=== PATIENT | female | born 1995 | race Caucasian/White ===

== ENCOUNTER 2016-11-27 18:54 | Emergency (ER) | payer OTHER ==
[2016-11-27 18:54] VITALS: BMI 24.7
[2016-11-27 20:25] LABS: RBC URINE 4 /hpf (0-3); URINE BACTERIA OCC (<OCC); URINE BILIRUBIN NEGATIVE (NEGATIVE); URINE BLOOD NEGATIVE (NEGATIVE); URINE COLOR Yellow (YELLOW); URINE GLUCOSE (UA) NORMAL (Normal); URINE KETONE TRACE mg/dL (NEGATIVE); URINE LEUKOCYTE ESTERASE TRACE Leu/uL (Negative); URINE PROTEIN NEGATIVE (NEGATIVE); URINE UROBILINOGEN NORMAL mg/dL (0.2-1.0); WBC URINE 6 /hpf (0-5)
[2016-11-27] MEDS ORDERED: Sodium Chloride 0.9% 1,000 ML IV ONE (21:12)
[2016-11-27] MEDS ORDERED: Sodium Chloride 0.9% 1,000 ML ONE (21:31)
[2016-11-27 21:36] LABS: BASO % 0.4 % (0.0-2.0); EOS % 0.3 % (0.0-4.0); HEMATOCRIT 37.4 % (34.0-47.0); LYMPH # 1.6 K/uL (1.0-4.3); LYMPH % 16.5 % (20.0-40.0); MEAN CELL VOLUME 87.8 fL (81.0-99.0); MEAN PLATELET VOLUME 7.8 fL (7.2-11.7); MONO # 0.4 K/uL (0.0-0.8); MONO % 4.4 % (0.0-10.0); RED CELL DISTRIBUTION WIDTH 12.9 % (11.5-14.5); WHITE BLOOD COUNT 9.7 K/uL (4.8-10.8)
[2016-11-27 21:43] LABS: CHLORIDE 100 mmol/L (98-107)
[2016-11-27 21:44] LABS: POTASSIUM 3.7 mmol/L (3.6-5.2); SODIUM 137 mmol/L (132-148)
[2016-11-27 21:46] LABS: ALB/GLOB RATIO 1.3 (1.0-2.1); ALKALINE PHOSPHATASE 54 U/L (38-126); AST/SGOT 20 U/L (14-36); BILIRUBIN,TOTAL 0.5 mg/dL (0.2-1.3); BLOOD UREA NITROGEN 10 mg/dL (7-17); CARBON DIOXIDE 28 mmol/L (22-30); GFR AFRICAN-AMERICAN > 60; TOTAL PROTEIN 7.5 g/dL (6.3-8.3)
[2016-11-27 21:47] LABS: ALT/SGPT 24 U/L (9-52); GLUCOSE,RANDOM 87 mg/dL (65-105)
--- NOTE | 2016-11-27 22:24 | CT ---
EXAM: CT Head Without Intravenous Contrast CLINICAL HISTORY: 21 years old, female; Condition or disease; Headache TECHNIQUE: Axial computed tomography images of the head/brain without intravenous contrast. This CT exam was performed using one or more of the following dose reduction techniques: automated exposure control, adjustment of the mA and/or kV according to patient size, and/or use of iterative reconstruction technique. COMPARISON: No relevant prior studies available. FINDINGS: Brain: No acute intracranial hemorrhage. No significant white matter disease. No edema. Ventricles: No significant ventriculomegaly. Bones: No acute displaced fracture. Sinuses: Mucoperiosteal thickening is identified within the bilateral sphenoid sinuses. The remaining paranasal sinuses (those visualized) are clear. Mastoid air cells: Unremarkable as visualized. No mastoid effusion. IMPRESSION: No acute intracranial hemorrhage, or suspicious mass effect. Inflammatory sinus disease, as detailed above.
--- NOTE | 2016-11-27 22:49 | C.PDOC ---
Time Seen by Provider: 11/27/16 20:25 Chief Complaint (Nursing): Headache History Per: Patient Onset/Duration Of Symptoms: Hrs, Gradual Current Symptoms Are (Timing): Still Present Severity: Moderate Quality: "Pain" Associated Symptoms: Nausea Additional History Per: Prior Records Past Medical History Reviewed: Historical Data, Nursing Documentation, Vital Signs Vital Signs: Last Vital Signs Temp 97.8 F 11/27/16 19:03 Pulse 72 11/27/16 19:03 Resp 18 11/27/16 19:03 BP 103/65 11/27/16 19:03 Pulse Ox 100 11/27/16 19:03 - Medical History PMH: Anemia - [facility] Procedures DELIVERY OF PRODUCTS OF CONCEPTION, EXTERNAL APPROACH (07/21/15) DIVISION OF FEMALE PERINEUM, EXTERNAL APPROACH (07/21/15) INSPECTION OF PELVIC CAVITY, PERC ENDO APPROACH (07/21/15) RELEASE PELVIC SUBCU/FASCIA, OPEN APPROACH (07/21/15) REPOSITION CECUM, OPEN APPROACH (07/21/15) Family History: States: Unknown Family Hx - Social History Hx Alcohol Use: No Hx Substance Use: No - Immunization History Hx Tetanus Toxoid Vaccination: No Hx Influenza Vaccination: No Hx Pneumococcal Vaccination: No Review Of Systems Except As Marked, All Systems Reviewed And Found Negative. Constitutional: Negative for: Fever, Weakness Eyes: Negative for: Vision Change ENT: Positive for: Nose Congestion Cardiovascular: Negative for: Chest Pain Respiratory: Negative for: Shortness of Breath, Hemoptysis Gastrointestinal: Positive for: Nausea, Vomiting (x1), Abdominal Pain ( epigastric, after vomiting). Negative for: Diarrhea Skin: Negative for: Rash Neurological: Positive for: Headache. Negative for: Weakness, Numbness, Seizures, Altered Mental Status Physical Exam - Physical Exam Appears: Non-toxic, No Acute Distress Skin: Normal Color, Warm, Dry, No Rash Head: Atraumatic, Normacephalic Eye(s): bilateral: Normal Inspection, PERRL, EOMI Neck: Normal ROM, Supple Cardiovascular: Rhythm Regular Respiratory: Normal Breath Sounds, No Accessory Muscle Use Gastrointestinal/Abdominal: Soft, No Tenderness, No Distention Back: No CVA Tenderness Extremity: Normal ROM Neurological/Psych: Oriented x3, Normal Speech, Normal Cognition, Normal Cranial Nerves, No Cerebellar Signs, Normal Motor, Normal Sensation ED Course And Treatment - Laboratory Results Result Diagrams: 11/27/16 21:41 11/27/16 21:13 Lab Interpretation: No Acute Changes Urine POC: Negative ECG: Interpreted By Me, Viewed By Me ECG Rhythm: Sinus Rhythm ECG Interpretation: No Acute Changes Rate From EC O2 Sat by Pulse Oximetry: 100 Pulse Ox Interpretation: Normal - CT Scan/US CT head Other Rad Studies (CT/US): Read By Radiologist, Radiology Report Reviewed CT/US Interpretation: IMPRESSION: No acute intracranial hemorrhage, or suspicious mass effect. Inflammatory sinus disease, as detailed above. Reassessment Condition: Improved Progress - Interventions Interventions:: Observation, Intravenous fluid - Medications Administered Intravenous: Antiemetic, H-2 cirilo - Data Reviewed Data Reviewed: Lab, Diagnostic imaging, EKG, Old records - Patient Status Patient status: Mostly improved - Continuity of Care Discussed patient case with:: Patient, Family-HIPPA compliant, ED Nurse - Patient Plan Patient Plan: Discharge, F/U with PCP Disposition Counseled Patient/Family Regarding: Studies Performed, Diagnosis, Need For Followup, Rx Given - Disposition Referrals: Malcolm Rabago MD [Staff Provider] - Disposition: HOME/ ROUTINE Disposition Time: 22:50 Condition: IMPROVED Additional Instructions: Follow up with your doctor for further evaluation and treatment. Return to the ER if you develop weakness, numbness, confusion, severe headache, fever, worsening of symptoms or if you have any other concerns. Prescriptions: Fluticasone Propionate [Flonase] 2 spr NS DAILY #1 bottle Instructions: General Headache (ED) Print Language: GREENLANDIC - Clinical Impression Clinical Impression: Headache, Sphenoidal sinusitis
[2016-11-27 23:10] VITALS: BP 104/55; PULSE 90; RESP 16; TEMP 98.5; O2SAT 98
== END 2016-11-27 23:10 | disposition home or self-care (01) ==
LOC: C.ER 18:54
DX: J32.3 Chronic sphenoidal sinusitis (principal); R51 Headache
CPT/HCPCS: 70450; 80053; 81001; 83690; 84703; 85025; 96361; 96374; 96375; 99285; J2405; J7040